=== PATIENT | male | born 1960 | race Caucasian/White ===

== ENCOUNTER 2021-11-26 11:35 | Emergency (ER) | payer OTHER, SELFPAY ==
--- NOTE | ~2021-11-26 | US_ITS ---
EXAMINATION: US VENOUS ULTRASOUND WITH DOPPLER LOWER EXTREMITY, LEFT CLINICAL INFORMATION: Pain, swelling. Evaluate for DVT. Patient reports left leg edema. COMPARISON: None TECHNIQUE: Ultrasound of the deep veins is performed from the hip to the calf with compression sonography and color and pulse Doppler assessment. Spectral analysis with color-flow imaging is performed. FINDINGS: There is normal venous compression and respiratory variation and augmented flow. The visualized common femoral vein, superficial femoral vein, profunda femoral vein, popliteal vein, and the trifurcation region shows no evidence of deep venous thrombosis. There is a 3.6 x 2.5 x 4.5 cm fluid collection in the left popliteal fossa likely representing a Baird's cyst. If the patient's symptoms persist, follow-up ultrasound in 5 to 7 days might be of value to exclude proximal propagation from a nonvisualized calf vein. US/US venous duplex LE IMPRESSION: No DVT demonstrated in the left lower extremity. Probable Baird's cyst.
[2021-11-26 13:04] VITALS: BP 178/97; PULSE 98; RESP 18; TEMP 36.8; O2SAT 98; BMI 29.7
--- NOTE | 2021-11-26 17:12 | ED_ITS ---
HPI - Extremity Injury (Lower) General Chief Complaint: Extremity Injury, Lower Stated Complaint: ?DVT Left Leg Time Seen by Provider: 11/26/21 16:33 Source: patient Mode of arrival: ambulatory Limitations: no limitations History of Present Illness HPI Narrative: 61-year-old male who presents emergency department for evaluation of pain in his left upper thigh and left leg. He states that the pain came on gradually approximately 4-5 days prior. He points to his left outer thigh and the back was thigh when asked to localize the pain. Describes it as a tightness which is constant and is 9/10 at its worst. The pain does radiate down his leg to his foot he states that his left foot is numb. He has not had any weakness in his leg, he denies loss of bowel or bladder control, he denies back pain. He states that he has been well and has not had fever, chills, chest pain, shortness of breath, cough. He denies drug use. The patient states that he was seen at the urgent care clinic at [facility] and started on prednisone 50 mg once a day for 3 days. He states that got this prescription on 11/24/2021 and this medicine has not helped his pain therefore came to emergency department for evaluation. The patient has not had any recent surgeries and has not gone on any long trips. Related Data Previous Rx's Medication Instructions Recorded cyclobenzaprine 10 mg tablet 10 mg PO TID PRN #15 tab 11/26/21 morphine 15 mg immediate release 15 mg PO Q4-6H PRN #10 tab 11/26/21 tablet prednisone 20 mg tablet 60 mg PO DAILY 7 Days #21 tab 11/26/21 Allergies Allergy/AdvReac Type Severity Reaction Status Date / Time No Known Allergies Allergy Verified 11/26/21 17:15 Review of Systems Review of Systems: Yes all other systems are reviewed and are negative [facility] Past Medical History [facility] Narrative: Past medical history: Hypertension, hyperlipidemia. Past surgical history: Left knee meniscal tear repair. Social history: He denies tobacco use. He states that he drinks 12 beers per week. He denies drug use. Medical History (Updated 11/26/21 @ 17:15 by Tavon Richard MD) Hypertension Torn meniscus Social History Social History Advance Directives: No Advance Directives Information Provided: No Physical Exam Vital Signs: Vital Signs: Last Vital Signs Temp 98.2 F 11/26/21 13:04 Pulse 98 11/26/21 13:04 Resp 18 11/26/21 13:04 BP 178/97 H 11/26/21 13:04 Pulse Ox 98 11/26/21 13:04 BMI result Body Mass Index 29.7 Const: General: cooperative and no acute distress Orientation/consciousness: oriented to person and oriented to place Limitations: no limitations HENMT: Head: Yes normal to inspection, Yes normocephalic and Yes atraumatic Ears: external ears normal General nose exam: Normal external nose present Face and sinus: Yes normal facial exam Mouth: Normal oral and palatal mucosa present Throat: Yes posterior oropharynx normal Eyes: General: appearance normal, both eyes and all related structures Pupils: Equal, round and reactive pupils present Neck: Neck: Yes normal visual inspection, Yes no lymphadenopathy, Yes trachea midline and Yes supple Chest: Chest palpation & inspection: normal inspection of the chest and normal palpation of entire chest wall Resp: Effort & Inspection: normal respiratory effort and able to speak in complete sentences Auscultation: clear to auscultation bilaterally Cardio: Rate: regular rate Rhythm: regular rhythm Heart sounds: S1 normal heart sound present, S2 normal heart sound present and no murmurs GI: Inspection: Yes normal to inspection Palpation (GI): Soft to palpation, nontender and no guarding Auscultation: normal bowel sounds : General: Yes no CVA tenderness Back/Spine/Pelvis: Back: no CVA tenderness Thoracic/Lumbar Spine: thoracic and lumbar spine normal to inspection, thoraco-lumbar ROM normal, No paraspinal muscle tenderness and No thoraco-lumbar spasm Skin: General skin exam: no rashes or lesions noted Neuro: General: oriented to person and oriented to place Cranial nerves: Yes CN's II-XII intact bilaterally and Yes Equal, round and reactive pupils present Cognition (Neuro): normal cognition Motor exam (neuro): 5/5 motor strength present throughout Extrem: Other: The patient's thighs and calves appear to be symmetric, there is no erythema or increased warmth noted over the skin of his lower extremities, the patient does have tenderness with palpation of his left posterior thigh muscles as well as along the left lateral thigh muscles, he has negative straight leg raises bilaterally, he has normal light touch bilaterally symmetric and normal strength which is bilaterally symmetric. Psych: Appearance: grossly normal Speech and movement: Normal speech and movement present Affect: normal affect Attitude: cooperative Thought process: Normal thought process present Thought content: Normal thought content present Course Course Course Narrative: 61-year-old male who presents emergency department for evaluation of 5 days of left posterior and lateral thigh pain which radiates down his leg to his foot, he describes numbness of his left foot, he denies back pain or recent injury to his back. He has not been ill in any way prior to the onset of this pain. The patient's physical examination revealed a normal skin exam of his lower extremities with no erythema or increased warmth, the patient does have tenderness palpation of his posterior and lateral left thigh with negative straight leg raises. The patient had a Doppler ultrasound of his left lower extremity which was negative. At this time, I do not have a clear etiology for his pain but I think that he has either sciatica or a disc which may with nerve inflammation/impingement. I do not think that he has an infectious process given his exam and his presentation. Patient will be treated with prednisone 60 mg once a day for 7 days, Tylenol and cyclobenzaprine. For pain not relieved with thes medications he was prescribed morphine 15 mg every 4-6 hours as needed for pain. He was given printed and verbal instructions advised to follow-up with his PCP in 2 days or return if his symptoms are worse. Discharge Plan Discharge Clinical Impression: Sciatica Patient Disposition: Home, Self-Care Instructions: Sciatica (ED) Additional Instructions: You had a Doppler ultrasound of your left lower extremity which was normal, there was no evidence for a blood clot in your leg at this time. Your examination did not reveal any significant findings to explain your pain. Since the pain radiates down your leg to your foot, I suspect that you have sciatica or a disc in your back which may be pinching a nerve. I am going to treat you with a longer course of anti-inflammatory steroids. Take prednisone 20 mg pills, 3 pills once a day for 1 week. While you are taking prednisone do not take any [id number]-[id number]-trzhsdy anti-inflammatory medications such as ibuprofen, Motrin, naproxen, Aleve, Advil. For pain and spasm take Flexeril (cyclobenzaprine) 10 mg, 1 pill 3 times a day as needed. This medication will make therefore do not work or drive while taking this medication. Also take Tylenol (acetaminophen) 500 mg pills, 2 pills every 6 hours as needed for pain. For pain not relieved by ibuprofen or Tylenol take morphine 15 mg pills, 1 pill every 4 hours as needed for pain. Do not drive or work while taking this medication since they can cause sleepiness. Morphine is a narcotic medication that can be addicting. If you are concerned about addiction you can ask the pharmacist for less pills or do not get this prescription filled. Follow-up with your doctor in 2 days. Please return to the emergency department if your symptoms get worse or if you develop any symptoms that are concerning to you. Do not drink alcohol when taking the above medications. Prescriptions: New cyclobenzaprine 10 mg tablet 10 mg PO TID PRN (Reason: pain, muscle spasm) Qty: 15 RF: 0 prednisone 20 mg tablet 60 mg PO DAILY 7 Days Qty: 21 RF: 0 morphine 15 mg tablet 15 mg PO Q4-6H PRN (Reason: pain) Qty: 10 RF: 0
== END 2021-11-26 17:31 | disposition home or self-care (01) ==
LOC: HO.ED 17:21
PROVIDERS: Emergency Provider Emergency Medicine Emergency Medical Services; PCP Internal Medicine
DX: M54.30 Sciatica, unspecified side (principal); M79.605 Pain in left leg; I10 Essential (primary) hypertension
CPT/HCPCS: 93971; 99283; 99284

== ENCOUNTER → 2021-12-23 08:04 | Outpatient (BNVA) | payer OTHER, SELFPAY | PROVIDERS: PCP Internal Medicine; Visit Provider Internal Medicine ==

== ENCOUNTER 2022-01-08 12:54 | Outpatient (RCR) | payer OTHER, SELFPAY ==
--- NOTE | 2022-01-09 14:56 | MHC.PT.EP ---
[facility] [place] Office [place] Office [place] Office [address] [phone] F: [phone] F: [phone] F: [phone] F: [phone] Physical Therapy Plan of Care Date of Evaluation: Date of Surgery: n/a. Diagnosis: Lumbago Assessment: Patient is a 61 year old R handed male who presents with s/s consistent with pain lumbago. 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 Patient past medical history includes L meniscus injury. Current impairments include pain, sensation, flexibility, posture, ROM, strength, activity tolerance and functional mobility. Functional limitations include decreased ability to perform transfers, ambulation, stairs, squatting, lifting and carrying. Patient is motivated with good rehab potential. Skilled PT will address impairments and functional limitations in order to achieve goals. Before starting formal PT, I will refer him to pursue a specialist regarding dermatomal/sensory changes consistent with S1 nerve compression. Frequency and Duration: The patient will be seen 2x/week for 5 weeks - currently referred to PCP to seek Neuro/Spine consult Short Term Goals: I with HEP - 2 weeks Jail Goals: Reduce/centralize all lumbar originated s/s - 4 weeks Restore PLOF - 4 weeks Oswestry 16% or better - 5 weeks Treatment Plan: Modalities to reduce pain, spasms and effusion. Manual therapy to restore motion and function. Therapeutic exercise to improve strength and flexibility. Neuromuscular re-education for posture and balance. Therapeutic activities to return to functional activities of daily living. Electronically signed by: Karthikeyan Ogden, PT Please sign and return to therapist. Thank you for your referral.
--- NOTE | 2022-08-21 08:45 | MHC.PT.DC ---
[facility] [place] Office [place] Office [place] Office [address] [phone] F: [phone] F: [phone] F: [phone] F: [phone] Physical Therapy Discharge Report Diagnosis: Lumbago Date of Surgery: n/a. Date of Evaluation: 01/08/22 Date of Discharge: 02/03/22 Treatments to Date: 1 Cancellations to Date: No Shows to Date: Discharge Status: Patient Elected to Stop Discharge Summary: Pt did not return after evaluation. Patient is a 61 year old R handed male who presents with s/s consistent with pain lumbago. 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 Patient past medical history includes L meniscus injury. Current impairments include pain, sensation, flexibility, posture, ROM, strength, activity tolerance and functional mobility. Functional limitations include decreased ability to perform transfers, ambulation, stairs, squatting, lifting and carrying. Patient is motivated with good rehab potential. Skilled PT will address impairments and functional limitations in order to achieve goals. Electronically signed by: Karthikeyan Ogden, PT Please sign and return to therapist. Thank you for your referral.
== END 2022-08-21 08:45 | disposition home or self-care (01) ==
LOC: HO.PTCHIC 12:54
PROVIDERS: PCP Internal Medicine; Visit Provider Internal Medicine
DX: M54.42 Lumbago with sciatica, left side (principal)
CPT/HCPCS: 97161

== ENCOUNTER 2022-09-29 15:57 | Emergency (ER) | payer OTHER, SELFPAY ==
[2022-09-29 16:45] VITALS: BP 136/84; PULSE 91; RESP 16; TEMP 36.8; O2SAT 97; BMI 28.6
--- NOTE | 2022-09-29 16:52 | ED.GENADULT ---
HPI - General Adult General Chief complaint: General Medical Stated complaint: possible cellulitis in arm Time Seen by Provider: 09/29/22 16:51 Source: patient Mode of arrival: ambulatory Limitations: no limitations History of Present Illness HPI narrative: Patient is a 62 year old assigned male at with a history of HTN and HLD presenting to the emergency department today with a cat scratch to his right arm. Patient states that 2 days ago he was scratched by his cat and today he noticed that the area was somewhat swollen and red. Patient states that he is up to date on tetanus. Patient denies any dizziness, lightheadedness, abdominal pain, nausea, vomiting, fever, chills, blurry vision, double vision, loss of vision, chest pain, difficulty breathing, shortness of breath, back pain, night sweats, pain with urination, increased urinary frequency, increased urinary urgency, blood in his urine or stool, syncope or a near syncopal episode, recent trauma or falls, bowel incontinence, bladder incontinence, bowel retention, bladder retention, or any other complaints at this time. Location: right and upper extremity Radiation: non-radiation Severity: mild Severity scale (1-10): 3 Quality: dull Relieving factors: none Exacerbating factors: none Associated symptoms: denies other symptoms Treatments prior to arrival: none Related Data Home Medications Medication Instructions Recorded Confirmed amlodipine 5 mg tablet 5 mg PO DAILY 12/23/21 12/23/21 atorvastatin 40 mg tablet 40 mg PO BEDTIME 12/23/21 12/23/21 ezetimibe 10 mg tablet 10 mg PO DAILY 12/23/21 12/23/21 hydrochlorothiazide 25 mg tablet 25 mg PO DAILY 12/23/21 12/23/21 Previous Rx's Medication Instructions Recorded cyclobenzaprine 10 mg tablet 10 mg PO TID PRN pain, muscle 11/26/21 spasm #15 tabs amoxicillin 875 mg-potassium 1 tab PO BID 10 days #20 tabs 09/29/22 clavulanate 125 mg tablet Allergies Allergy/AdvReac Type Severity Reaction Status Date / Time No Known Allergies Allergy Verified 09/29/22 16:44 Review of Systems Constitutional: Constitutional: Reports no additional constitutional complaints, Denies chills, Denies fever(s) and Denies night sweats Eyes: Eyes: Reports no additional eye complaints, Denies blurry vision, Denies change in vision, Denies diplopia, Denies eye discharge, Denies loss of vision and Denies eye pain ENT: Denies dizziness Cardiovascular: Cardiovascular: Reports no additional cardiovascular complaints, Denies chest pain, Denies lightheadedness, Denies Loss of Consciousness and Denies dyspnea Respiratory: Respiratory: Reports no additional respiratory complaints and Denies dyspnea Gastrointestinal: Gastrointestinal: Reports no additional gastrointestinal complaints, Denies abdominal pain, Denies melena, Denies hematochezia, Denies change in bowel habits and Denies change in stool character Genitourinary: Genitourinary: Reports no additional male genitourinary complaints, Denies hematuria, Denies oliguria, Denies difficulty urinating, Denies dysuria, Denies urinary frequency, Denies urinary hesitancy, Denies urinary incontinence and Denies urinary urgency Musculoskeletal: Musculoskeletal: Reports no additional musculoskeletal complaints, Denies numbness and Denies tingling Integumentary/Breasts: Comments: right wrist redness and swelling Neurologic: Denies dizziness, Denies loss of vision, Denies numbness and Denies tingling Psychiatric: Psychiatric: Reports no additional psychiatric complaints Endocrine: Endocrine: Reports no additional endocrine complaints Hematologic/Lymphatic: Hematologic/Lymphatic: Reports no additional hematologic/lymphatic complaints Allergic/Immunologic: Allergic/Immunologic: Reports no additional allergic/immunologic complaints PMFSH Past Medical History Attestation statement: The following information was validated with the patient. Source: old records reviewed Medical History Abnormal brain MRI Asymptomatic hyperuricemia Elevated PSA History of colon polyps Hyperlipidemia Hypertension Left facial numbness Left-sided low back pain with sciatica Obese Torn meniscus Surgical History Hx of colonoscopy Social History Social History Patient Tobacco Use Status: Former Tobacco user Cigarette Packs Per Day: 1 Years Smoked: 18 Advance Directives: No Advance Directives Information Provided: No Physical Exam ED Vital Signs: Vital Signs - 24 hr 09/29/22 16:45 Temperature 98.2 F Pulse Rate 91 Respiratory Rate 16 Blood Pressure 136/84 Pulse Oximetry 97 Oxygen Delivery Method Room Air BMI result Body Mass Index 28.6 Const General: cooperative, no acute distress, alert and awake Nutritional Appearance: well nourished Orientation/consciousness: patient oriented x3 Limitations: no limitations HENMT Head: Yes normal to inspection and Yes atraumatic Ears: hearing grossly normal bilaterally and external ears normal General nose exam: Normal external nose present, no nasal discharge noted and no epistaxis Face and sinus: Yes normal facial exam, No abrasion and No laceration Mouth: Normal oral and palatal mucosa present, no drooling and no muffled voice Eyes General: appearance normal, both eyes and all related structures Periorbital: periorbital findings normal Eyelids: Yes eyelids normal Conjunctivae: conjunctivae normal Pupils: Equal, round and reactive pupils present EOM: EOMs intact bilaterally Neck Neck: Yes normal visual inspection, Yes full ROM and Yes no lymphadenopathy Chest Chest palpation & inspection: normal inspection of the chest Resp Effort & Inspection: normal respiratory effort and able to speak in complete sentences Auscultation: clear to auscultation bilaterally Cardio Rate: regular rate Rhythm: regular rhythm GI Inspection: Yes normal to inspection Skin Other: mild erythema and mild swelling to the right forearm Neuro General: patient oriented x3 and moves all extremities Cranial nerves: Yes Equal, round and reactive pupils present Cognition (Neuro): normal cognition Motor exam (neuro): 5/5 motor strength present throughout Sensory Exam: Normal double simultaneous stimulation for sensation Coordination: [id number] test normal Extrem General: Yes normal to inspection, Yes full ROM and Yes capillary refill normal Psych Appearance: grossly normal Mental Status: mental status grossly normal Affect: normal affect Attitude: cooperative Thought process: Normal thought process present Thought content: Normal thought content present Insight: Good insight present (Psych) Medical Decision Making [facility] Narrative Medical decision making narrative: Patient is a 62 year old assigned male at with a history of HTN and HLD presenting to the emergency department today with right wrist pain. Patient's physical exam showed mild erythema and swelling to the right volar wrist. Patient's current clinical presentation is most consistent with cellulitis. I explained my physical exam findings to the patient. I answered all questions asked by the patient. I stressed the importance of the patient taking his medication as prescribed. I stressed the importance of the patient following up with his primary care provider. I stressed the importance of the patient returning to the emergency department immediately if his symptoms were to worsen or if he were to develop any dizziness, shortness of breath, difficulty breathing, chest pain, blurry vision, loss of vision, nausea, vomiting, abdominal pain, fever, chills, back pain, or any other complaints. Patient verbalized agreement and understanding with this treatment plan and discharge. Medical Records Medical records reviewed: Yes I reviewed the patient's medical records. Discharge Plan Discharge Clinical Impression: Cellulitis Patient Disposition: Home, Self-Care Instructions: Cellulitis (ED) Additional Instructions: Follow up with your primary care provider. Return to the emergency department immediately if your symptoms worsen or if you develop any dizziness, shortness of breath, difficulty breathing, chest pain, blurry vision, loss of vision, nausea, vomiting, abdominal pain, fever, chills, back pain, or any other complaints. Prescriptions: New amoxicillin-pot clavulanate 875-125 mg tablet 1 tab PO BID 10 Days Qty: 20 0RF No Action cyclobenzaprine 10 mg tablet 10 mg PO TID PRN (Reason: pain, muscle spasm) Qty: 15 0RF amlodipine 5 mg tablet 5 mg PO DAILY atorvastatin 40 mg tablet 40 mg PO BEDTIME hydrochlorothiazide 25 mg tablet 25 mg PO DAILY ezetimibe 10 mg tablet 10 mg PO DAILY Referrals: Ernesto Vasquez III, MD [Primary Care Provider] - Interventions: ED Discharge Assessment Last Done: 09/29/22 16:56 Discharge Date/Time: 09/29/22 17:17 Print Language: Macedonian
== END 2022-09-29 17:17 | disposition home or self-care (01) ==
LOC: HO.ED 17:08
PROVIDERS: Emergency Provider Student in an Organized Health Care Education/Training Program; PCP Internal Medicine
DX: L03.113 Cellulitis of right upper limb (principal); Z79.899 Other long term (current) drug therapy
CPT/HCPCS: 99282; 99283

== ENCOUNTER 2022-10-01 11:42 | Emergency (ER) | payer OTHER, SELFPAY ==
[2022-10-01 12:24] VITALS: BP 133/103; PULSE 86; RESP 18; TEMP 36.9; O2SAT 99; BMI 29.0
--- NOTE | 2022-10-01 13:19 | ED_ITS ---
HPI - Extremity Problem General Chief complaint: Extremity Problem Stated complaint: cellulitis on R hand Time Seen by Provider: 10/01/22 12:52 Source: patient Mode of arrival: ambulatory Limitations: no limitations History of Present Illness HPI Narrative: 62-year-old male with history of hypertension and hyperlipidemia presents with right hand redness, swelling and pain. Patient is right-hand dominant. He bel ieves that he may had a small cat scratch or bite on his right hand. He was seen here on September 29. He was diagnosed with cellulitis and started on Augmentin. He has taken 4 doses of the Augmentin. He is here because he is worried there is increasing redness, swelling to the right hand. No fevers, chills, vomiting. Overall is feeling okay. Patient does report history of cellulitis in the past that did not improve with Augmentin and did require Bactrim. Related Data Home Medications Medication Instructions Recorded Confirmed amlodipine 5 mg tablet 5 mg PO DAILY 12/23/21 12/23/21 atorvastatin 40 mg tablet 40 mg PO BEDTIME 12/23/21 12/23/21 ezetimibe 10 mg tablet 10 mg PO DAILY 12/23/21 12/23/21 hydrochlorothiazide 25 mg tablet 25 mg PO DAILY 12/23/21 12/23/21 Previous Rx's Medication Instructions Recorded cyclobenzaprine 10 mg tablet 10 mg PO TID PRN pain, muscle 11/26/21 spasm #15 tabs amoxicillin 875 mg-potassium 1 tab PO BID 10 days #20 tabs 09/29/22 clavulanate 125 mg tablet cephalexin 500 mg capsule 500 mg PO BID #14 caps 10/01/22 doxycycline monohydrate 100 mg 100 mg PO BID #14 caps 10/01/22 capsule Allergies Allergy/AdvReac Type Severity Reaction Status Date / Time No Known Allergies Allergy Verified 09/29/22 16:44 Review of Systems Review of Systems: Yes all other systems are reviewed and are negative Constitutional: Constitutional: Reports no additional constitutional co mplaints, Denies body ache(s), Denies chills, Denies fever(s), Denies headache(s) and Denies weakness Eyes: Eyes: Reports no additional eye complaints and Denies change in vision ENT: Reports system reviewed and no additional complaints, except as documented, Denies dizziness, Denies headache(s), Denies nasal congestion, Denies nasal discharge and Denies neck pain Cardiovascular: Cardiovascular: Reports no additional cardiovascular complaints, Denies chest pain, Denies leg edema and Denies dyspnea Respiratory: Respiratory: Reports no additional respiratory complaints, Denies cough and Denies dyspnea Gastrointestinal: Gastrointestinal: Reports no additional gastrointestinal complaints, Denies abdominal pain, Denies diarrhea, Denies nausea and Denies vomiting Genitourinary: Genitourinary: Denies urinary incontinence Musculoskeletal: Musculoskeletal: Reports no additional musculoskeletal complaints, Denies back pain, Denies arthralgias, Denies joint swelling, Denies neck pain, Denies numbness and Denies tingling Integumentary/Breasts: Skin/Breast: Reports system reviewed and no additional complaints, except as docu, Reports swelling, Reports erythema and Denies rash Neurologic: Reports system reviewed and no additional complaints, except as documented, Denies Abnormal speech present, Denies dizziness, Denies headache(s), Denies numbness, Denies tingling and Denies weakness PMFSH Past Medical History Attestation statement: The following information was validated with the patient. Source: old records reviewed and nursing notes reviewed Medical History Abnormal brain MRI Asymptomatic hyperuricemia Elevated PSA History of colon polyps Hyperlipidemia Hypertension Left facial numbness Left-sided low back pain with sciatica Obese Torn meniscus Surgical History Hx of colonoscopy Social History Social History Patient Tobacco Use Status: Former Tobacco user Cigarette Packs Per Day: 1 Years Smoked: 18 Advance Directives: No Physical Exam Vital Signs: Vital Signs: Last Vital Signs Temp 98.4 F 10/01/22 12:24 Pulse 86 10/01/22 12:24 Resp 18 10/01/22 12:24 BP 133/103 H 10/01/22 12:24 Pulse Ox 99 10/01/22 12:24 O2 Del Method 10/01/22 12:24 BMI result Body Mass Index 29.0 Const: General: cooperative, healthy appearing, comfortable and no acute distress Orientation/consciousness: patient oriented x3 Limitations: no limitations HEENT: Head: Yes normal to inspection Ears: hearing grossly normal bilaterally General nose exam: Normal external nose present Face and sinus: Yes normal facial exam Mouth: Normal oral and palatal mucosa present Throat: Yes posterior oropharynx normal Eyes: General: appearance normal, both eyes and all related structures Pupils: Equal, round and reactive pupils present Neck: Neck: Yes normal visual inspection Chest: Chest palpation & inspection: normal inspection of the chest Resp: Effort & Inspection: normal respiratory effort Auscultation: clear to auscultation bilaterally Cardio: Rate: regular rate Rhythm: regular rhythm Peripheral pulses: Peripheral pulses 2+ throughout GI: Inspection: Yes normal to inspection Palpation (GI): Soft to palpation and nontender Auscultation: normal bowel sounds Back/Spine/Pelvis: Thoracic/Lumbar Spine: thoracic and lumbar spine normal to inspection Skin: General skin exam: no rashes or lesions noted Neuro: General: patient oriented x3, no focal motor deficits and normal sensation to monofilament Cranial nerves: Yes Equal, round and reactive pupils present Cognition (Neuro): normal cognition Speech: No Abnormal speech present Gait exam (Neuro): Normal gait present Motor exam (neuro): 5/5 motor strength present throughout Extrem: Other: There is some mild tenderness over the right dorsal medial wrist but there is full range of motion of the wrist and hand with no difficulty. There is some mild discomfort with flexion and extension of the wrist the patient is able. No pain with passive range of motion. Neurovascularly intact distally. General: Yes normal to inspection MDM - Extremity (Nontraumatic) MDM Narrative Medical decision making narrative: 62-year-old male with history of hypertension, hyperlipidemia, [id number] here with increasing redness and swelling to the right hand despite taking 4 doses of Augmentin. Of note in the past and patient has had cellulitis he has not improved with Augmentin has required Bactrim On exam there is no evidence of tenosynovitis or septic joint. Patient is afebrile and overall nontoxic appearing. Patient was seen in conjunction with Dr. Suh. Likely patient will require additional coverage and so we will change his antibiotics to doxycycline and cephalexin. Pictures were placed in the chart and patient also was recommended to take pictures of his hand to monitor the site and return for any worrisome signs or symptoms. Comfortable plan for discharge home. Medical Records Attestation: I reviewed the patient's medical records. Lab Data Attestation: I reviewed the patient's lab results. Discharge Plan Discharge Clinical Impression: Cellulitis Patient Disposition: Home, Self-Care Instructions: Cellulitis (ED) Additional Instructions: Stop taking the Augmentin Start taking the new antibiotic Make sure your elevating your hand as much as possible Return for fever or worsening symptoms Prescriptions: New doxycycline monohydrate 100 mg capsule 100 mg PO BID Qty: 14 0RF cephalexin 500 mg capsule 500 mg PO BID Qty: 14 0RF No Action cyclobenzaprine 10 mg tablet 10 mg PO TID PRN (Reason: pain, muscle spasm) Qty: 15 0RF amoxicillin-pot clavulanate 875-125 mg tablet 1 tab PO BID 10 Days Qty: 20 0RF amlodipine 5 mg tablet 5 mg PO DAILY atorvastatin 40 mg tablet 40 mg PO BEDTIME hydrochlorothiazide 25 mg tablet 25 mg PO DAILY ezetimibe 10 mg tablet 10 mg PO DAILY Referrals: Ernesto Vasquez III, MD [Primary Care Provider] - 5 days (as needed)
== END 2022-10-01 13:25 | disposition home or self-care (01) ==
PROVIDERS: Emergency Provider Student in an Organized Health Care Education/Training Program; PCP Internal Medicine
DX: L03.113 Cellulitis of right upper limb (principal); Z79.899 Other long term (current) drug therapy; Z87.891 Personal history of nicotine dependence
CPT/HCPCS: 99283

== ENCOUNTER 2022-10-07 23:03 | Inpatient (IN) | payer OTHER, SELFPAY ==
--- NOTE | ~2022-10-07 | MR_ITS ---
EXAMINATION: MR HAND WITHOUT AND WITH CONTRAST, RIGHT CLINICAL INFORMATION: Fifth digit pain. Evaluate for osteomyelitis. COMPARISON: Right hand radiographs dated 10/08/2022. TECHNIQUE: Multisequence MR imaging of the right hand was obtained before and after the IV administration of 8.5 mL Gadavist contrast on a high-field strength scanner. FINDINGS: BONE: Subchondral cystic change with loss of articular cartilage and small marginal osteophytes at the 5th distal interphalangeal joint. Mild marrow edema with minimal postcontrast enhancement within the middle phalangeal head in the region of the prior radiograph findings. No acute fracture or dislocation. Mild, partially visualized edema/degenerative cystic change within the carpal bones. MUSCLES/TENDONS: Fluid within the 5th flexor digitorum tendon sheath with postcontrast enhancement, consistent with tenosynovitis. No transverse tendon tear or tendon retraction. The remaining flexor and extensor tendons are intact. The median nerve is unremarkable. LIGAMENTS: The collateral ligaments are grossly intact. SOFT TISSUES: Dorsal subcutaneous edema. No organized fluid collection/abscess formation. MR/MR hand RT wo/w con IMPRESSION: 1. Fifth distal interphalangeal joint erosion with mild marrow edema and postcontrast enhancement in the region of the prior radiograph findings. Findings may be degenerative or could indicate an infectious or inflammatory arthropathy in the appropriate clinical setting. No significant joint effusion to suggest septic arthritis. 2. Moderate 5th flexor digitorum tenosynovitis without a measurable tendon tear or tendon retraction. 3. Dorsal subcutaneous edema without organized fluid collection/abscess formation.
--- NOTE | ~2022-10-07 | XR_ITS ---
EXAMINATION: XR HAND, RIGHT CLINICAL INFORMATION: Rule out osteomyelitis of the fifth digit, pain. COMPARISON: None TECHNIQUE: PA, lateral, and oblique views of the right hand. FINDINGS: There is diffuse soft tissue swelling, more noticeable along the fifth digit and wrist. There are erosions and cortical disruption along the ulnar aspect of the distal fifth middle phalanx, concerning for osteomyelitis. No displaced fractures. No subluxation. Decreased bone mineralization with mild to moderate multifocal osteoarthritis more noticeable in the first carpometacarpal joint and triscaphe space. XR/XR hand RT min 3V IMPRESSION: 1. Erosions and cortical disruption along the ulnar aspect of the distal fifth middle phalanx, concerning for osteomyelitis. 2. Diffuse soft tissue swelling.
[2022-10-07 23:15] VITALS: BP 125/85; PULSE 103; RESP 18; TEMP 36.7; O2SAT 99; BMI 29.0
[2022-10-07 23:33] LABS: MANUAL DIFF FLAG NO
[2022-10-07 23:34] LABS: Basophils Absolute Auto 0.1 X10*3/uL (0.0-0.2); Basophils Percent Auto 0.5 % (0-2); Eosinophils Absolute Auto 0.2 X10*3/uL (0.0-0.4); Hematocrit 39.5 % (42.0-52.0); Hemoglobin 13.8 g/dl (14.0-18.0); Imm Gran Abs Auto 0.08 X10*3/uL (0.00-0.03); Imm Gran Pct Auto 0.7 % (0.0-0.4); Lymphocytes Absolute Auto 2.3 X10*3/uL (1.2-4.9); Lymphocytes Percent Auto 20.1 % (20-40); Mean Corpuscular HGB Conc 34.9 g/dl (31.0-36.0); Mean Corpuscular Hemoglobin 30.5 pg (27.0-33.0); Mean Corpuscular Volume 87.4 fL (80.0-98.0); Mean Platelet Volume 8.3 fL (9.4-12.4); Monocytes Absolute Auto 1.1 X10*3/uL (0.1-1.2); Monocytes Percent Auto 9.8 % (2-11); Neutrophils Absolute Auto 7.8 x10*3/uL (2.0-8.3); Neutrophils Percent Auto 66.9 % (45-73); Platelet Count 484 X10*3/uL (160-400); Red Blood Count 4.52 X10*6/uL (4.60-5.80); Red Cell Distribution Width 12.7 % (11.0-16.0); White Blood Count 11.6 X10*3/uL (4.8-10.8)
[2022-10-08] LABS: Alanine Aminotransferase 13 U/L (0-40); Albumin Level 4.1 g/dL (3.5-5.0); Alkaline Phosphatase 103 U/L (39-117); Anion Gap 20 (12-20); Aspartate Amino Transferase 15 U/L (5-37); Bilirubin Total 0.4 mg/dL (0.0-1.0); Blood Urea Nitrogen 15 mg/dL (9-16); Calcium 9.5 mg/dL (8.4-10.2); Carbon Dioxide 24 mmol/L (22-29); Chloride 101 mmol/L (96-108); Creatinine Clr Calc Pharmacy 79.5; Estimated Glomerular Filt Rate > 60; Glucose Random 120 mg/dL (60-115); Potassium 3.1 mmol/L (3.3-5.1); Sodium 142 mmol/L (135-145); Total Protein 6.7 g/dL (6.5-8.0)
[2022-10-08 03:41] LABS: Lactic Acid 1.8 mmol/L (0.5-2.0)
[2022-10-08] MEDS: Piperacillin Sodium/Tazobactam 3.375 GM in 0.9 % Sodium Chloride 50 ML IV (04:03)
--- NOTE | 2022-10-08 04:05 | PC.NURSE ---
pt a&o, no sob or chest pain. Brandt right hand to monitor increase redness. pt able to move for digits okay, pinky finger is limited to swelling. Medicated per mar
[2022-10-08 04:10] VITALS: BP 114/80; PULSE 87; RESP 17; TEMP 36.9; O2SAT 98
[2022-10-08] MEDS: vancomycin HCL 1,000 MG in 0.9 % Sodium Chloride 250 ML 270 MG IV (04:54)
[2022-10-08 04:56] VITALS: BP 117/81; PULSE 79; RESP 12; TEMP 36.9; O2SAT 94
--- NOTE | 2022-10-08 04:58 | PC.NURSE ---
Second antibiptoc hung after first antibiotic completed. pt has one line. Will continue to monitor.
--- NOTE | 2022-10-08 05:05 | PM.IMHP ---
History of Present Illness Date of Service: 10/08/22 Chief Complaint: Right fifth finger swelling This is a 62-year-old male with pertinent history of essential hypertension, mixed hyperlipidemia presents to the emergency department after abnormal hand x-ray. Patient was seen in the ER twice previously for right hand cellulitis due to cat bite. Patient was given 2 separate p.o. antibiotic course and has tried Augmentin, doxycycline and cephalexin as an outpatient. He states he noticed improvement in right hand swelling, redness but it never resolved. Patient had worsening right 5th finger swelling, redness and pain. Pain is constant, nonradiating and worse with any movement. Patient got an x-ray as an outpatient and was asked to come to the ER for concerns of osteomyelitis. Patient denies fever, chills, nausea, vomiting, chest discomfort, palpitations, shortness of breath, abdominal pain, changes in urinary or bowel habits In the emergency department, hand x-ray concerning for osteomyelitis Review of Systems Constitutional: Constitutional: Reports no additional constitutional complaints Cardiovascular: Cardiovascular: Reports no additional cardiovascular complaints Respiratory: Respiratory: Reports no additional respiratory complaints Gastrointestinal: Gastrointestinal: Reports no additional gastrointestinal complaints Musculoskeletal: Musculoskeletal: Reports arthralgias and Reports joint swelling Neurologic: Reports system reviewed and no additional complaints, except as documented [facility] Medical History Abnormal brain MRI Asymptomatic hyperuricemia Elevated PSA History of colon polyps Hyperlipidemia Hypertension Left facial numbness Left-sided low back pain with sciatica Obese Torn meniscus Surgical History Hx of colonoscopy Social History Patient Tobacco Use Status: Former Tobacco user Cigarette Packs Per Day: 1 Years Smoked: 18 Advance Directives: No Advance Directives Information Provided: No Meds Allergies Allergy/AdvReac Type Severity Reaction Status Date / Time No Known Allergies Allergy Verified 10/07/22 23:20 Active Medications: Current Medications Acetaminophen (Acetaminophen 325 Mg Tablet) 650 mg PO Q6H PRN PRN Reason: Pain, Mild (Pain Scale 1-3) Melatonin (Melatonin 3 Mg Tablet) 6 mg PO BEDTIME PRN PRN Reason: Insomnia Ondansetron HCl (Ondansetron Hcl 4 Mg/2 Ml Vial) 4 mg IVPUSH Q8H PRN PRN Reason: Nausea and Vomiting Pharmacy Consult (Consult Rx Vancomycin Dosing) 1 each MISCELLANE DAILY PRN PRN Reason: Consult order Potassium Chloride (Potassium Chloride Packet 20 Meq Packet) 40 meq PO ONCE ONE Stop: 10/08/22 05:02 Sodium Chloride (0.9 % Sodium Chloride Flush 3 Ml Syringe) 3 ml IVFLUSH QSHIST. [facility] Home Medications Medication Instructions Recorded Confirmed Last Taken Type amlodipine 5 mg tablet 5 mg PO DAILY 12/23/21 12/23/21 Unknown History atorvastatin 40 mg tablet 40 mg PO BEDTIME 12/23/21 12/23/21 Unknown History ezetimibe 10 mg tablet 10 mg PO DAILY 12/23/21 12/23/21 Unknown History hydrochlorothiazide 25 mg tablet 25 mg PO DAILY 12/23/21 12/23/21 Unknown History Physical Exam Vital Signs and Narrative: Vital Signs: Last Vital Signs Temp 98.4 F 10/08/22 04:56 Pulse 79 10/08/22 04:56 Resp 12 10/08/22 04:56 BP 117/81 10/08/22 04:56 Pulse Ox 94 10/08/22 04:56 O2 Del Method 10/08/22 04:56 BMI result Body Mass Index 29.0 Middle-aged male lying in bed in no distress Neck supple, no JVD Regular rate and rhythm, S1-S2 heard Regular breath sounds bilaterally, no wheezing or crackles appreciated Abdomen soft nontender, no guarding, no rigidity Patient is awake, alert and oriented to self, place, time and person ; no focal motor deficit Msk: right hand with redness, right fifth finger with swelling and tenderness Psych: Normal mood No pedal edema Results Labs CBC and Chem 7: 10/07/22 23:28 10/07/22 23:28 Labs: Laboratory Results - last 24 hr 10/07/22 10/07/22 10/08/22 23:28 23:28 03:23 MCV 87.4 MCH 30.5 MCHC 34.9 RDW 12.7 Plt Count 484 H MPV 8.3 L Immature Gran % (Auto) 0.7 H Neut % (Auto) 66.9 Lymph % (Auto) 20.1 [place] % (Auto) 9.8 Eos % (Auto) 2.0 Baso % (Auto) 0.5 Lymph # (Auto) 2.3 [place] # (Auto) 1.1 Eos # (Auto) 0.2 Baso # (Auto) 0.1 Abs Immat Gran (auto) 0.08 H Absolute Neuts (auto) 7.8 Absolute Nucleated RBC 0.000 Nucleated RBC % (auto) 0.0 Anion Gap 20 Estim Creat Clear Calc 79.5 Estimated GFR > 60 Random Glucose 120 H Lactic Acid 1.8 Calcium 9.5 Total Bilirubin 0.4 AST 15 ALT 13 Alkaline Phosphatase 103 Total Protein 6.7 Albumin 4.1 Imaging Radiologist's Impressions: Impressions Hand X-Ray 10/08/22 03:36 IMPRESSION: 1. Erosions and cortical disruption along the ulnar aspect of the distal fifth middle phalanx, concerning for osteomyelitis. 2. Diffuse soft tissue swelling. Assessment and Plan (1) Hyperlipidemia: Status: Acute (2) Hypertension: Status: Acute (3) Osteomyelitis: Status: Acute (4) Cellulitis: Status: Acute Plan This is a 62-year-old male with pertinent history of essential hypertension, mixed hyperlipidemia presents to the emergency department after abnormal hand x-ray. #. Acute right fifth phalanx osteomyelitis - patient received broad-spectrum IV antibiotics in the ER. Currently not septic, will hold antibiotics for higher yield bone culture. Consulting orthopedics and Infectious Disease. #. Right hand cellulitits -improving but hasnt resolved. Abx defer until bone culture as above. #. HTN - continue home p.o. medications. #. HLD -on statin and zetia #. Hypokalemia -repleted Med rec pending DVT prophylaxis: Hold anticoagulation until orthopedic surgery evaluation Full code NPO until orthopedic surgery evaluation Admit as inpatient and will require two night minimum hospital stay for IV antibiotics. Orthopedic surgery and infectious disease eval pending Quality Stroke Does the patient have a stroke diagnosis?: No VTE Prior VTE?: No VTE Risk Level:: Medical - low VTE Device Contraindication: Treatment Not Indicated VTE Drug Contraindication: Treatment Not Indicated
[2022-10-08] MEDS: Potassium Chloride Packet 20 MEQ PACKET 40 MEQ PO ×2 (05:27→06:10)
--- NOTE | 2022-10-08 05:47 | ED.GENADULT ---
HPI - General Adult General Chief complaint: Extremity Problem Stated complaint: ?Bone infection in R hand Time Seen by Provider: 10/08/22 03:47 Source: patient Mode of arrival: ambulatory Limitations: no limitations History of Present Illness HPI narrative: 62-year-old male came in for evaluation of right hand pain and possible infection. Patient was scratched by his own cat at home 2 weeks ago patient was presented to the hospital and was prescribed Augmentin which was not improving patient's symptoms and was changed to Keflex /+ doxycycline for another 10 days, went today to a walk-in clinic did an x-ray showed a concern of right pinky finger osteomyelitis patient came to the emergency department for further evaluation. Related Data Home Medications Medication Instructions Recorded Confirmed amlodipine 5 mg tablet 5 mg PO DAILY 12/23/21 12/23/21 atorvastatin 40 mg tablet 40 mg PO BEDTIME 12/23/21 12/23/21 ezetimibe 10 mg tablet 10 mg PO DAILY 12/23/21 12/23/21 hydrochlorothiazide 25 mg tablet 25 mg PO DAILY 12/23/21 12/23/21 Previous Rx's Medication Instructions Recorded cyclobenzaprine 10 mg tablet 10 mg PO TID PRN pain, muscle 11/26/21 spasm #15 tabs amoxicillin 875 mg-potassium 1 tab PO BID 10 days #20 tabs 09/29/22 clavulanate 125 mg tablet cephalexin 500 mg capsule 500 mg PO BID #14 caps 10/01/22 doxycycline monohydrate 100 mg 100 mg PO BID #14 caps 10/01/22 capsule Allergies Allergy/AdvReac Type Severity Reaction Status Date / Time No Known Allergies Allergy Verified 10/07/22 23:20 Review of Systems Review of Systems: All other systems are reviewed and are negative Constitutional: Reports as per HPI and Reports no additional constitutional complaints Eyes: Reports as per HPI and Reports no additional eye complaints Reports system reviewed and no additional complaints, except as documented Cardiovascular: Reports as per HPI and Reports no additional cardiovascular complaints Respiratory: Reports as per HPI and Reports no additional respiratory complaints Gastrointestinal: Reports as per HPI and Reports no additional gastrointestinal complaints Genitourinary: Reports no additional female genitourinary complaints Musculoskeletal: Reports no additional musculoskeletal complaints Skin/Breast: Reports system reviewed and no additional complaints, except as docu Psychiatric: Reports no additional psychiatric complaints Endocrine: Reports no additional endocrine complaints Hematologic/Lymphatic: Reports no additional hematologic/lymphatic complaints Allergic/Immunologic: Reports no additional allergic/immunologic complaints Reports system reviewed and no additional complaints, except as documented and Reports Abnormal speech present [facility] Past Medical History Medical History Abnormal brain MRI Asymptomatic hyperuricemia Elevated PSA History of colon polyps Hyperlipidemia Hypertension Left facial numbness Left-sided low back pain with sciatica Obese Torn meniscus Surgical History Hx of colonoscopy Social History Social History Patient Tobacco Use Status: Former Tobacco user Cigarette Packs Per Day: 1 Years Smoked: 18 Advance Directives: No Advance Directives Information Provided: No Physical Exam ED Vital Signs: Vital Signs - 24 hr 10/07/22 23:15 10/08/22 04:10 10/08/22 04:56 Temperature 98.1 F 98.4 F 98.4 F Pulse Rate 103 H 87 79 Respiratory Rate 18 17 12 Blood Pressure 125/85 114/80 117/81 Pulse Oximetry 99 98 94 Oxygen Delivery Method Room Air Room Air Room Air BMI result Body Mass Index 29.0 vital signs have been reviewed as appeared to be correct. Blood pressure normal. Heart rate normal. Respiration rate normal. Temperature normal. Oxygen saturation normal. Appearance: Alert. Oriented X3. No acute distress. Head: Normal external exam. Normocephalic. Atraumatic. No Colmenares signs noted. No raccoon eyes noted Eyes: PERRLA. EOMI. Conjunctiva and sclera normal. Eyelids normal. ENT: TM's Normal. Pharynx normal. Uvula midline. Moist mucous membranes. No trismus noted. No drooling noted. No muffled voice noted. Neck: Normal inspection. Neck supple. FROM. No adenopathy. Thyroid Normal. No meningeal signs. No neck mass noted. CVS: Normal heart rate and rhythm. Heart sound normal. No murmurs noted. Pulses normal throughout. Respiratory: No respiratory distress. Painless inspiration. Breath sounds normal. No wheezes/rales/rhonchi noted. Chest nontender. No accessory muscle usage noted or decreased air movement noted. Abdomen: Soft and nontender. Bowel sounds normal in all 4 quadrants. No distention noted. No organomegaly noted. No visible injury noted. Back: No CVA tenderness. Full range of motion noted. Skin: Skin warm and dry. Normal skin color. Normal skin turgor. No rashes/lesions/lacerations noted. Extremities: Right hand exam: Tenderness and swelling over the right 5th finger with no step-off or deformity, mild redness over the dorsum aspect of the right hand. Neuro: Oriented X 3. Cranial nerve exam: II-XII are grossly intact No motor deficit. No sensory deficit. Reflexes normal. Course Course Course Narrative: 62-year-old male started with a cat scratch to the right hand, patient failed multiple courses of oral antibiotic as an outpatient now is developing osteomyelitis of the right ring finger will start the patient on Zosyn and vancomycin, admit. Patient is not in severe sepsis or septic shock. Mild hypokalemia will replete orally. Medications Administered Discontinued Medications Generic Name Dose Route Start Last Admin Trade Name Freq PRN Reason Stop Dose Admin Piperacillin Sod/Tazobactam 50 mls @ 100 mls/hr 10/08/22 03:09 10/08/22 04:03 Sod 3.375 gm/ Sodium Chloride IV 10/08/22 03:38 100 mls/hr ONCE ONE Administration Vancomycin HCl 1,000 mg/ 270 mls @ 270 mls/hr 10/08/22 03:09 10/08/22 04:54 Sodium Chloride IV 10/08/22 04:08 270 mls/hr ONCE ONE Administration Potassium Chloride 40 meq 10/08/22 05:01 10/08/22 05:27 Potassium Chloride Packet 20 Meq Packet PO 10/08/22 05:02 40 meq ONCE ONE Administration Medical Decision Making Medical Records Medical records reviewed: Yes I reviewed the patient's medical records. Lab Data Lab results reviewed: Yes I reviewed the patient's lab results. Result diagrams: 10/07/22 23:28 10/07/22 23:28 Labs: Lab Results 10/07/22 10/07/22 10/08/22 Range/Units 23:28 23:28 03:23 WBC 11.6 H (4.8-10.8) X10*3/uL RBC 4.52 L (4.60-5.80) X10*6/uL Hgb 13.8 L (14.0-18.0) g/dl Hct 39.5 L (42.0-52.0) % MCV 87.4 (80.0-98.0) fL MCH 30.5 (27.0-33.0) pg MCHC 34.9 (31.0-36.0) g/dl RDW 12.7 (11.0-16.0) % Plt Count 484 H (160-400) X10*3/uL MPV 8.3 L (9.4-12.4) fL Immature Gran % (Auto) 0.7 H (0.0-0.4) % Neut % (Auto) 66.9 (45-73) % Lymph % (Auto) 20.1 (20-40) % [place] % (Auto) 9.8 (2-11) % Eos % (Auto) 2.0 (0-4) % Baso % (Auto) 0.5 (0-2) % Lymph # (Auto) 2.3 (1.2-4.9) X10*3/uL [place] # (Auto) 1.1 (0.1-1.2) X10*3/uL Eos # (Auto) 0.2 (0.0-0.4) X10*3/uL Baso # (Auto) 0.1 (0.0-0.2) X10*3/uL Abs Immat Gran (auto) 0.08 H (0.00-0.03) X10*3/uL Absolute Neuts (auto) 7.8 (2.0-8.3) x10*3/uL Absolute Nucleated RBC 0.000 (0.0-0.012) X10*3/uL Nucleated RBC % (auto) 0.0 (0.0-0.2) /100WBC Sodium 142 (135-145) mmol/L Potassium 3.1 L (3.3-5.1) mmol/L Chloride 101 (96-108) mmol/L Carbon Dioxide 24 (22-29) mmol/L Anion Gap 20 (12-20) BUN 15 (9-16) mg/dL Creatinine 1.01 (0.5-1.4) mg/dL Estim Creat Clear Calc 79.5 Estimated GFR > 60 Random Glucose 120 H (60-115) mg/dL Lactic Acid 1.8 (0.5-2.0) mmol/L Calcium 9.5 (8.4-10.2) mg/dL Total Bilirubin 0.4 (0.0-1.0) mg/dL AST 15 (5-37) U/L ALT 13 (0-40) U/L Alkaline Phosphatase 103 (39-117) U/L Total Protein 6.7 (6.5-8.0) g/dL Albumin 4.1 (3.5-5.0) g/dL Imaging Data Right hand x-ray: Attestation: I personally reviewed and interpreted this imaging study as follows: Radiologist's impression: 1.? Erosions and cortical disruption along the ulnar aspect of the distal fifth middle phalanx, concerning for osteomyelitis. 2.? Diffuse soft tissue swelling. ? Discharge Plan Discharge Clinical Impression: Hand osteomyelitis, right, Hypokalemia Patient Disposition: Admitted As Inpatient
--- NOTE | 2022-10-08 06:12 | PC.NURSE ---
pt medicated per Mar.
[2022-10-08 06:33] LABS: COVID-19 Test Negative (Negative)
[2022-10-08 07:02] VITALS: BP 117/86; PULSE 88; RESP 14; TEMP 37; O2SAT 100
[2022-10-08 08:12] VITALS: BP 116/75; PULSE 82; RESP 17; O2SAT 96
--- NOTE | 2022-10-08 08:25 | P.CONOP_ITS ---
History of Present Illness HPI Consult date: 10/08/22 Chief complaint: Right hand pain Narrative: 62 yo male who was admitted to the medical service for right hand cellulitis and possible osteomyelitis. he states he was bit by his cat, unsure of the exact date, but he noticed pain and redness/swelling of the right smal finger on 09/27. He was given PO abx without significant relief which prompted his visit to the ED. Ortho was consulted for further recommendations. Review of Systems Review of Systems: per [facility] Past Medical History Medical History Abnormal brain MRI Asymptomatic hyperuricemia Elevated PSA History of colon polyps Hyperlipidemia Hypertension Left facial numbness Left-sided low back pain with sciatica Obese Torn meniscus Surgical History Surgical History Hx of colonoscopy Social History Social History Household Members: Spouse Patient Tobacco Use Status: Former Tobacco user Cigarette Packs Per Day: 1 Years Smoked: 18 Meds Allergies Allergy/AdvReac Type Severity Reaction Status Date / Time No Known Allergies Allergy Verified 10/07/22 23:20 Active Medications: Current Medications Acetaminophen (Acetaminophen 325 Mg Tablet) 650 mg PO Q6H PRN PRN Reason: Pain, Mild (Pain Scale 1-3) Melatonin (Melatonin 3 Mg Tablet) 6 mg PO BEDTIME PRN PRN Reason: Insomnia Ondansetron HCl (Ondansetron Hcl 4 Mg/2 Ml Vial) 4 mg IVPUSH Q8H PRN PRN Reason: Nausea and Vomiting Sodium Chloride (0.9 % Sodium Chloride Flush 3 Ml Syringe) 3 ml [facility] [place] Admin: 10/08/22 07:30 Dose: Not Given Home Medications Medication Instructions Recorded Confirmed Last Taken Type amlodipine 5 mg tablet 5 mg PO DAILY 12/23/21 10/08/22 Unknown History atorvastatin 40 mg tablet 40 mg PO BEDTIME 12/23/21 10/08/22 Unknown History ezetimibe 10 mg tablet 10 mg PO DAILY 12/23/21 10/08/22 Unknown History hydrochlorothiazide 25 mg tablet 25 mg PO DAILY 12/23/21 10/08/22 Unknown History azithromycin 250 mg tablet 1 tab PO DIRECTED 10/08/22 10/08/22 Unknown History Physical Exam Vital Signs: Vital Signs: Last Vital Signs Temp 98.6 F 10/08/22 07:02 Pulse 82 10/08/22 08:12 Resp 17 10/08/22 08:12 BP 116/75 10/08/22 08:12 Pulse Ox 96 10/08/22 08:12 O2 Del Method 10/08/22 08:12 BMI result Body Mass Index 29.0 Const: General: healthy appearing, comfortable and no acute distress Extrem: Other: Right hand skin intact, no significant redness, swelling or abscess formation along the right forearm, wrist, hand or fingers. He has some tenderness along the DIP of the right small finger with soft tissue swelling. No pain in the palmar crease, thenar eminence, web spaces or flexor tendons. He can fully extend all digits. He can bring his fingers appro 1 cm above palmar crease with flexion but the small finger he can flex at the mcp 90, PIP 15. NVI. Results Labs Result Diagrams: 10/07/22 23:28 10/07/22 23:28 Labs: Abnormal lab results 10/07/22 10/07/22 Range/Units 23:28 23:28 WBC 11.6 H (4.8-10.8) X10*3/uL RBC 4.52 L (4.60-5.80) X10*6/uL Hgb 13.8 L (14.0-18.0) g/dl Hct 39.5 L (42.0-52.0) % Plt Count 484 H (160-400) X10*3/uL MPV 8.3 L (9.4-12.4) fL Immature Gran % (Auto) 0.7 H (0.0-0.4) % Abs Immat Gran (auto) 0.08 H (0.00-0.03) X10*3/uL Potassium 3.1 L (3.3-5.1) mmol/L Random Glucose 120 H (60-115) mg/dL H & H 10/07/22 Range/Units 23:28 Hgb 13.8 L (14.0-18.0) g/dl Hct 39.5 L (42.0-52.0) % All other labs normal. Diagnostic results Wrist/Hand x-ray: image reviewed (Right small finger has some degenerative changes wtih osteophyte formation, possible osteomyelitis along the PIP of the small finger) Assessment and Plan (1) Cellulitis: Status: Acute Plan I discussed the case with Dr Colmenares, out hand surgeon . At this time, there is no acute infection process. In the possible setting of osteomyelitis, there is sno acute or emergent need for surgical intervention. Continue abx prn for cellulitis and he can f.u out patient in our clinic for further recommendations of possible osteomyelitis of the right small finger. Procedures Date of Service Date of Service: 10/08/22
--- NOTE | 2022-10-08 08:59 | PHA.MEDREC ---
Pharmacy Consult ? Medication Reconciliation Pharmacy has completed the medication reconciliation.
--- NOTE | 2022-10-08 11:39 | MHC.CM.PN ---
Attempted to meet with patient in regards to discharge planning. Patient currently sleeping. No family present. Will attempt to meet again. Continue to monitor for d/c needs.
[2022-10-08] MEDS: Ampicillin Sodium/Sulbactam Na 3 GM in 0.9 % Sodium Chloride 100 ML IV ×2 (14:50→20:17)
[2022-10-08 15:16] VITALS: BP 141/80; PULSE 81; RESP 16; TEMP 36.9; O2SAT 97
[2022-10-08] MEDS: 0.9 % Sodium Chloride Flush 3 ML SYRINGE IVFLUSH ×2 (15:23→23:29)
--- NOTE | 2022-10-08 15:35 | HO.PM.IMPN ---
Subjective Subjective Date of Service: 10/08/22 Interval History: No acute issues since admission Review of Systems Complains of minimal right hand pain Denies chest pain Denies shortness of breath Denies nausea vomiting diarrhea Physical Exam Vital Signs: Vital Signs: Last Vital Signs Temp 98.4 F 10/08/22 15:16 Pulse 81 10/08/22 15:16 Resp 16 10/08/22 15:16 BP 141/80 H 10/08/22 15:16 Pulse Ox 97 10/08/22 15:16 O2 Del Method 10/08/22 15:16 BMI result Body Mass Index 29.0 Const: Other: No acute distress Resp: Other: Clear to auscultation bilaterally Cardio: Other: No S4; positive S1-S2; no S3 murmurs rubs or gallops Extrem: Other: Erythema over dorsum of right hand extending to wrist some improvement overnight Objective Data Active Medications Acetaminophen (Acetaminophen 325 Mg Tablet) 650 mg PO Q6H PRN PRN Reason: Pain, Mild (Pain Scale 1-3) Amlodipine Besylate (Amlodipine Besylate 5 Mg Tablet) 5 mg PO DAILY [facility]; Protocol Atorvastatin Calcium (Atorvastatin Calcium 40 Mg Tablet) 40 mg PO BEDTIME [facility] Ezetimibe (Ezetimibe 10 Mg Tablet) 10 mg PO DAILY [facility] Hydrochlorothiazide (Hydrochlorothiazide 25 Mg Tablet) 25 mg PO DAILY [facility]; Protocol Ampicillin Sodium/Sulbactam (Sodium 3 gm/ Sodium Chloride) 100 mls @ 200 mls/hr IV Q6H [facility] Last Infusion: 10/08/22 15:21 Dose: 0 mls/hr Documented By: CALVIN Melatonin (Melatonin 3 Mg Tablet) 6 mg PO BEDTIME PRN PRN Reason: Insomnia Ondansetron HCl (Ondansetron Hcl 4 Mg/2 Ml Vial) 4 mg IVPUSH Q8H PRN PRN Reason: Nausea and Vomiting Sodium Chloride (0.9 % Sodium Chloride Flush 3 Ml Syringe) 3 ml IVFLUSH QSHIFT [facility] Last Admin: 10/08/22 15:23 Dose: 3 ml Documented By: CALVIN Labs CBC & Chem 7: 10/07/22 23:28 10/07/22 23:28 Labs: Laboratory Results - last 24 hr 10/07/22 10/07/22 10/08/22 23:28 23:28 03:23 MCV 87.4 MCH 30.5 MCHC 34.9 RDW 12.7 Plt Count 484 H MPV 8.3 L Immature Gran % (Auto) 0.7 H Neut % (Auto) 66.9 Lymph % (Auto) 20.1 [place] % (Auto) 9.8 Eos % (Auto) 2.0 Baso % (Auto) 0.5 Lymph # (Auto) 2.3 [place] # (Auto) 1.1 Eos # (Auto) 0.2 Baso # (Auto) 0.1 Abs Immat Gran (auto) 0.08 H Absolute Neuts (auto) 7.8 Absolute Nucleated RBC 0.000 Nucleated RBC % (auto) 0.0 Anion Gap 20 Estim Creat Clear Calc 79.5 Estimated GFR > 60 Random Glucose 120 H Lactic Acid 1.8 Calcium 9.5 Total Bilirubin 0.4 AST 15 ALT 13 Alkaline Phosphatase 103 Total Protein 6.7 Albumin 4.1 COVID-19 ([facility]) COVID-19 Clin Com 10/08/22 06:01 MCV MCH MCHC RDW Plt Count MPV Immature Gran % (Auto) Neut % (Auto) Lymph % (Auto) [place] % (Auto) Eos % (Auto) Baso % (Auto) Lymph # (Auto) [place] # (Auto) Eos # (Auto) Baso # (Auto) Abs Immat Gran (auto) Absolute Neuts (auto) Absolute Nucleated RBC Nucleated RBC % (auto) Anion Gap Estim Creat Clear Calc Estimated GFR Random Glucose Lactic Acid Calcium Total Bilirubin AST ALT Alkaline Phosphatase Total Protein Albumin COVID-19 ([facility]) Negative COVID-19 Clin Com See Note Assessment and Plan (1) Hand osteomyelitis, right: Status: Acute (2) Hypertension: Status: Acute (3) Hyperlipidemia: Status: Acute Plan This is a 62-year-old male with pertinent history of essential hypertension, mixed hyperlipidemia presents to the emergency department after abnormal hand x-ray(failed outpatient therapies with oral antibiotics) 1. Acute right fifth phalanx osteomyelitis (by x-ray) - appreciate ID input -check MRI right hand -Unasyn as ordered 2. HTN - acceptable control on current therapies -adjust as indicated 3. Hyperlipidemia -continue outpatient therapies Lovenox Full code Will require ongoing hospitalization for IV antibiotics until osteomyelitis confirmed by MRI Quality Stroke Does the patient have a stroke diagnosis?: No VTE Prior VTE?: No VTE Risk Level:: Medical - low VTE Device Contraindication: Treatment Not Indicated VTE Drug Contraindication: Treatment Not Indicated
[2022-10-08] MEDS: Enoxaparin Sodium 40 MG/0.4 ML SYRINGE SUBCUT (16:12)
[2022-10-08] MEDS: Atorvastatin Calcium 40 MG TABLET PO (20:17)
--- NOTE | 2022-10-08 20:46 | PC.NURSE ---
Report given to M3 nurse Emerson- pt tranported to floor via WC
[2022-10-08 21:09] VITALS: BMI 29.2
--- NOTE | 2022-10-08 23:06 | W.PM.IDCN ---
History of Present Illness Data of Consult Service Date: 10/08/22 Requesting physician: Stefan Kate Primary Care Provider: Ernesto Vasquez III, MD HPI Reason for consult: right hand infection,osteomyelitis He presents with right hand pain and swelling,especially fifth finger cant bend in. He had been scratched by 18 year old cat while giving it insulin on 09/26, He has been prescribed Augmentin on 09/29 after presenting with swelling right hand. He had no fever or chills Review of Systems Review of Systems: Yes all other systems are reviewed and are negative [facility] Past Medical History Medical History Abnormal brain MRI Asymptomatic hyperuricemia Elevated PSA History of colon polyps Hyperlipidemia Hypertension Left facial numbness Left-sided low back pain with sciatica Obese Torn meniscus Family History Family history: reviewed and not pertinent Surgical History Surgical History Hx of colonoscopy Social History Social History Household Members: Spouse Patient Tobacco Use Status: Former Tobacco user Cigarette Packs Per Day: 1 Years Smoked: 18 Meds Allergies Allergy/AdvReac Type Severity Reaction Status Date / Time No Known Allergies Allergy Verified 10/07/22 23:20 Active Medications: Current Medications Acetaminophen (Acetaminophen 325 Mg Tablet) 650 mg PO Q6H PRN PRN Reason: Pain, Mild (Pain Scale 1-3) Amlodipine Besylate (Amlodipine Besylate 5 Mg Tablet) 5 mg PO DAILY [facility]; Protocol Atorvastatin Calcium (Atorvastatin Calcium 40 Mg Tablet) 40 mg PO BEDTIME [facility] Last Admin: 10/08/22 20:17 Dose: 40 mg Ezetimibe (Ezetimibe 10 Mg Tablet) 10 mg PO DAILY [facility] Enoxaparin Sodium (Enoxaparin Sodium 40 Mg/0.4 Ml Syringe) 40 mg SUBCUT Q24H [facility] Last Admin: 10/08/22 16:12 Dose: 40 mg Hydrochlorothiazide (Hydrochlorothiazide 25 Mg Tablet) 25 mg PO DAILY [facility]; Protocol Ampicillin Sodium/Sulbactam (Sodium 3 gm/ Sodium Chloride) 100 mls @ 200 mls/hr IV Q6H [facility] Last Infusion: 10/08/22 21:34 Dose: Infused Melatonin (Melatonin 3 Mg Tablet) 6 mg PO BEDTIME PRN PRN Reason: Insomnia Ondansetron HCl (Ondansetron Hcl 4 Mg/2 Ml Vial) 4 mg IVPUSH Q8H PRN PRN Reason: Nausea and Vomiting Sodium Chloride (0.9 % Sodium Chloride Flush 3 Ml Syringe) 3 ml IVFLUSH QSHIFT [facility] Last Admin: 10/08/22 15:23 Dose: 3 ml Home Medications Medication Instructions Recorded Confirmed Last Taken Type amlodipine 5 mg tablet 5 mg PO DAILY 12/23/21 10/08/22 Unknown History atorvastatin 40 mg tablet 40 mg PO BEDTIME 12/23/21 10/08/22 Unknown History ezetimibe 10 mg tablet 10 mg PO DAILY 12/23/21 10/08/22 Unknown History hydrochlorothiazide 25 mg tablet 25 mg PO DAILY 12/23/21 10/08/22 Unknown History azithromycin 250 mg tablet 1 tab PO DIRECTED 10/08/22 10/08/22 Unknown History Physical Exam Vital Signs: Vital Signs: Last Vital Signs Temp 98.4 F 10/08/22 15:16 Pulse 81 10/08/22 15:16 Resp 16 10/08/22 15:16 BP 141/80 H 10/08/22 15:16 Pulse Ox 97 10/08/22 15:16 O2 Del Method 10/08/22 15:16 BMI result Body Mass Index 29.2 Const: General: cooperative HEENT: Head: Yes normal to inspection Face and sinus: Yes normal facial exam Mouth: Normal oral and palatal mucosa present Teeth and gingiva: dentition normal Eyes: General: appearance normal, both eyes and all related structures Pupils: Equal, round and reactive pupils present Resp: Effort & Inspection: normal respiratory effort Cardio: Rate: regular rate Rhythm: regular rhythm GI: Palpation (GI): Soft to palpation and nontender : General: Yes no CVA tenderness Back/Spine/Pelvis: Back: no CVA tenderness Skin: General skin exam: no rashes or lesions noted Neuro: General: moves all extremities Cranial nerves: Yes Equal, round and reactive pupils present Extrem: Other: fifth finger trouble bending fifth finger Psych: Appearance: grossly normal Results Labs CBC & Chem 7: 10/07/22 23:28 10/07/22 23:28 Labs: Short CBC 10/07/22 Range/Units 23:28 WBC 11.6 H (4.8-10.8) X10*3/uL Hgb 13.8 L (14.0-18.0) g/dl Hct 39.5 L (42.0-52.0) % Plt Count 484 H (160-400) X10*3/uL BMP 10/07/22 23:28 Sodium 142 Potassium 3.1 L Chloride 101 Carbon Dioxide 24 BUN 15 Creatinine 1.01 Calcium 9.5 Liver Function 10/07/22 Range/Units 23:28 Total Bilirubin 0.4 (0.0-1.0) mg/dL AST 15 (5-37) U/L ALT 13 (0-40) U/L Alkaline Phosphatase 103 (39-117) U/L Albumin 4.1 (3.5-5.0) g/dL Assessment and Plan (1) Hand osteomyelitis, right: Status: Acute He has possible pasteurella and gram positive cocci He has discomfort and possible tendon involvement He is UTI on tetanus shot and cat vaccinated. Plan Unasyn or Zosyn Check MRI Probable six weeks IV if osteomyelitis found
[2022-10-08] MEDS: Acetaminophen 325 MG TABLET 650 MG PO (23:22)
[2022-10-08 23:45] VITALS: BP 142/86; PULSE 86; RESP 18; TEMP 36.2; O2SAT 98
[2022-10-09] MEDS: Ampicillin Sodium/Sulbactam Na 3 GM in 0.9 % Sodium Chloride 100 ML IV ×4 (01:44→19:42)
[2022-10-09 04:00] VITALS: BP 166/94; PULSE 62; RESP 18; TEMP 36.4; O2SAT 98
[2022-10-09 05:44] LABS: MANUAL DIFF FLAG NO
[2022-10-09 05:47] LABS: Basophils Absolute Auto 0.1 X10*3/uL (0.0-0.2); Eosinophils Absolute Auto 0.2 X10*3/uL (0.0-0.4); Eosinophils Percent Auto 2.8 % (0-4); Hematocrit 40.3 % (42.0-52.0); Hemoglobin 13.8 g/dl (14.0-18.0); Imm Gran Abs Auto 0.05 X10*3/uL (0.00-0.03); Imm Gran Pct Auto 0.6 % (0.0-0.4); Lymphocytes Absolute Auto 1.9 X10*3/uL (1.2-4.9); Lymphocytes Percent Auto 24.5 % (20-40); Mean Corpuscular HGB Conc 34.2 g/dl (31.0-36.0); Mean Corpuscular Hemoglobin 30.1 pg (27.0-33.0); Mean Corpuscular Volume 87.8 fL (80.0-98.0); Mean Platelet Volume 8.5 fL (9.4-12.4); Monocytes Absolute Auto 0.8 X10*3/uL (0.1-1.2); Monocytes Percent Auto 10.5 % (2-11); Neutrophils Absolute Auto 4.7 x10*3/uL (2.0-8.3); Neutrophils Percent Auto 60.6 % (45-73); Platelet Count 494 X10*3/uL (160-400); Red Blood Count 4.59 X10*6/uL (4.60-5.80); Red Cell Distribution Width 12.7 % (11.0-16.0); White Blood Count 7.7 X10*3/uL (4.8-10.8)
[2022-10-09 06:12] LABS: Alanine Aminotransferase 9 U/L (0-40); Albumin Level 3.6 g/dL (3.5-5.0); Alkaline Phosphatase 83 U/L (39-117); Anion Gap 15 (12-20); Aspartate Amino Transferase 13 U/L (5-37); Bilirubin Total 0.7 mg/dL (0.0-1.0); Blood Urea Nitrogen 11 mg/dL (9-16); Calcium 9.3 mg/dL (8.4-10.2); Calcium 9.4 mg/dL (8.4-10.2); Carbon Dioxide 27 mmol/L (22-29); Chloride 104 mmol/L (96-108); Chloride 105 mmol/L (96-108); Creatinine Clr Calc Pharmacy 115.2; Creatinine Clr Calc Pharmacy 116.9; Estimated Glomerular Filt Rate > 60; Glucose Fasting 92 mg/dL (60-99); Glucose Random 92 mg/dL (60-115); Sodium 142 mmol/L (135-145); Sodium 143 mmol/L (135-145); Total Protein 5.8 g/dL (6.5-8.0)
[2022-10-09 07:03] VITALS: BP 143/86; PULSE 74; RESP 18; TEMP 36.9; O2SAT 97
[2022-10-09] MEDS: Ezetimibe 10 MG TABLET PO (07:40)
[2022-10-09] MEDS: amLODIPine Besylate 5 MG TABLET PO (07:40)
[2022-10-09] MEDS: 0.9 % Sodium Chloride Flush 3 ML SYRINGE IVFLUSH ×3 (07:40→20:56)
[2022-10-09] MEDS: hydroCHLOROthiazide 25 MG TABLET PO (07:40)
[2022-10-09] MEDS: oxyCODONE HCl Immed Release 5 MG TABLET PO ×3 (08:48→19:41)
--- NOTE | 2022-10-09 10:25 | MHC.CM.PN ---
EMR REVIEWED, PT ADMITTTED W/RIGHT HAND PAIN, CELLULITIS AND POSSIBLE OSTEO, PER HOSPITALIST PT WILL NEED GROUP HOME IV ABX, PT REPORTS HE WOULD LIKE TO GO BACK TO WORK [employer], PT HAS NO PREFERENCE OF [facility] AND CM HAS SENT REFERRAL TO [facility] W/REQUEST FOR [facility] TO PROVIDE NSG WELL. PCP: PADILLA HAMMOND AT [facility], PT DENIES BEING VACCINATED FOR COVID. ANTIC D/C FRI W/[facility] FOR IV ABX
[2022-10-09 11:15] VITALS: BP 139/90; PULSE 77; RESP 18; TEMP 36.2; O2SAT 97
--- NOTE | 2022-10-09 13:34 | HO.PM.IMPN ---
Subjective Subjective Date of Service: 10/09/22 Interval History: Doing well overall. Pain control adequate Review of Systems Complains of minimal right hand pain Denies chest pain Denies shortness of breath Denies nausea vomiting diarrhea Physical Exam Vital Signs: Vital Signs: Last Vital Signs Temp 97.1 F 10/09/22 11:15 Pulse 77 10/09/22 11:15 Resp 18 10/09/22 11:15 BP 139/90 H 10/09/22 11:15 Pulse Ox 97 10/09/22 11:15 O2 Del Method 10/09/22 11:15 BMI result Body Mass Index 29.2 Const: Other: No acute distress Resp: Other: Clear to auscultation bilaterally Cardio: Other: No S4; positive S1-S2; no S3 murmurs rubs or gallops Extrem: Other: Erythema over dorsum of right hand extending to wrist some improvement overnight Objective Data Active Medications Acetaminophen (Acetaminophen 325 Mg Tablet) 650 mg PO Q6H PRN PRN Reason: Pain, Mild (Pain Scale 1-3) Last Admin: 10/08/22 23:22 Dose: 650 mg Documented By: JACQUI Amlodipine Besylate (Amlodipine Besylate 5 Mg Tablet) 5 mg PO DAILY [facility]; Protocol Last Admin: 10/09/22 07:40 Dose: 5 mg Documented By: ANGLE Atorvastatin Calcium (Atorvastatin Calcium 40 Mg Tablet) 40 mg PO BEDTIME [facility] Last Admin: 10/08/22 20:17 Dose: 40 mg Documented By: MARA Ezetimibe (Ezetimibe 10 Mg Tablet) 10 mg PO DAILY [facility] Last Admin: 10/09/22 07:40 Dose: 10 mg Documented By: ANGLE Enoxaparin Sodium (Enoxaparin Sodium 40 Mg/0.4 Ml Syringe) 40 mg SUBCUT Q24H [facility] Last Admin: 10/08/22 16:12 Dose: 40 mg Documented By: CALVIN Hydrochlorothiazide (Hydrochlorothiazide 25 Mg Tablet) 25 mg PO DAILY [facility]; Protocol Last Admin: 10/09/22 07:40 Dose: 25 mg Documented By: ANGLE Ampicillin Sodium/Sulbactam (Sodium 3 gm/ Sodium Chloride) 100 mls @ 200 mls/hr IV Q6H [facility] Last Infusion: 10/09/22 08:19 Dose: 0 mls/hr Documented By: ANGLE Melatonin (Melatonin 3 Mg Tablet) 6 mg PO BEDTIME PRN PRN Reason: Insomnia Ondansetron HCl (Ondansetron Hcl 4 Mg/2 Ml Vial) 4 mg IVPUSH Q8H PRN PRN Reason: Nausea and Vomiting Oxycodone HCl (Oxycodone Hcl Immed Release 5 Mg Tablet) 5 mg PO Q4H PRN PRN Reason: Pain, Moderate (Pain Scale 4-6 Last Admin: 10/09/22 08:48 Dose: 5 mg Documented By: ANGLE Sodium Chloride (0.9 % Sodium Chloride Flush 3 Ml Syringe) 3 ml IVFLUSH QSHIFT [facility] Last Admin: 10/09/22 07:40 Dose: 3 ml Documented By: ANGLE Labs CBC & Chem 7: 10/09/22 05:27 10/09/22 05:27 Labs: Laboratory Results - last 24 hr 10/09/22 10/09/22 10/09/22 05:27 05:27 05:27 MCV 87.8 MCH 30.1 MCHC 34.2 RDW 12.7 Plt Count 494 H MPV 8.5 L Immature Gran % (Auto) 0.6 H Neut % (Auto) 60.6 Lymph % (Auto) 24.5 [place] % (Auto) 10.5 Eos % (Auto) 2.8 Baso % (Auto) 1.0 Lymph # (Auto) 1.9 [place] # (Auto) 0.8 Eos # (Auto) 0.2 Baso # (Auto) 0.1 Abs Immat Gran (auto) 0.05 H Absolute Neuts (auto) 4.7 Absolute Nucleated RBC 0.000 Nucleated RBC % (auto) 0.0 Anion Gap 15 15 Estim Creat Clear Calc 116.9 115.2 Estimated GFR > 60 > 60 Random Glucose 92 Fasting Glucose 92 Calcium 9.4 9.3 Total Bilirubin 0.7 AST 13 ALT 9 Alkaline Phosphatase 83 Total Protein 5.8 L Albumin 3.6 Microbiology Microbiology Results: Microbiology 10/08/22 03:23 Blood Culture - Preliminary Blood - Venous No growth after 24 hours. 10/08/22 03:23 Blood Culture - Preliminary Blood - Venous No growth after 24 hours. Assessment and Plan (1) Hand osteomyelitis, right: Status: Acute (2) Hypertension: Status: Acute (3) Hyperlipidemia: Status: Acute Plan This is a 62-year-old male with pertinent history of essential hypertension, mixed hyperlipidemia presents to the emergency department after abnormal hand x-ray(failed outpatient therapies with oral antibiotics) 1. Acute right fifth phalanx osteomyelitis (by x-ray) - appreciate ID input -check MRI right hand... Revisit ID before PICC line -Unasyn/vancomycin as ordered 2. HTN - acceptable control on current therapies -adjust as indicated 3. Hyperlipidemia -continue outpatient therapies Lovenox Full code Will require ongoing hospitalization for IV antibiotics until osteomyelitis confirmed by MRI Quality Stroke Does the patient have a stroke diagnosis?: No VTE Prior VTE?: No VTE Risk Level:: Medical - low VTE Device Contraindication: Treatment Not Indicated VTE Drug Contraindication: Treatment Not Indicated
[2022-10-09 15:01] VITALS: BP 137/92; PULSE 78; RESP 17; TEMP 36.3; O2SAT 98
[2022-10-09] MEDS: Enoxaparin Sodium 40 MG/0.4 ML SYRINGE SUBCUT (16:45)
[2022-10-09 19:20] VITALS: BP 121/79; PULSE 80; RESP 18; TEMP 36.5; O2SAT 97
[2022-10-09] MEDS: Atorvastatin Calcium 40 MG TABLET PO (19:42)
[2022-10-09 23:47] VITALS: BP 138/87; PULSE 77; RESP 18; TEMP 36.4; O2SAT 97
[2022-10-10] MEDS: Ampicillin Sodium/Sulbactam Na 3 GM in 0.9 % Sodium Chloride 100 ML IV ×2 (01:57→07:49)
[2022-10-10 04:00] VITALS: BP 148/89; PULSE 64; RESP 18; TEMP 36.5; O2SAT 98
[2022-10-10 04:32] VITALS: BP 142/74; PULSE 66
[2022-10-10 06:09] LABS: MANUAL DIFF FLAG NO
[2022-10-10 06:16] LABS: Basophils Absolute Auto 0.1 X10*3/uL (0.0-0.2); Basophils Percent Auto 0.6 % (0-2); Eosinophils Absolute Auto 0.2 X10*3/uL (0.0-0.4); Eosinophils Percent Auto 2.6 % (0-4); Hematocrit 39.2 % (42.0-52.0); Hemoglobin 13.2 g/dl (14.0-18.0); Imm Gran Abs Auto 0.04 X10*3/uL (0.00-0.03); Imm Gran Pct Auto 0.5 % (0.0-0.4); Lymphocytes Absolute Auto 2.1 X10*3/uL (1.2-4.9); Lymphocytes Percent Auto 25.4 % (20-40); Mean Corpuscular HGB Conc 33.7 g/dl (31.0-36.0); Mean Corpuscular Hemoglobin 29.9 pg (27.0-33.0); Mean Corpuscular Volume 88.7 fL (80.0-98.0); Mean Platelet Volume 8.6 fL (9.4-12.4); Monocytes Percent Auto 11.9 % (2-11); Neutrophils Absolute Auto 4.9 x10*3/uL (2.0-8.3); Platelet Count 493 X10*3/uL (160-400); Red Blood Count 4.42 X10*6/uL (4.60-5.80); Red Cell Distribution Width 12.5 % (11.0-16.0); White Blood Count 8.4 X10*3/uL (4.8-10.8)
[2022-10-10 06:29] LABS: Alanine Aminotransferase 10 U/L (0-40); Albumin Level 3.7 g/dL (3.5-5.0); Alkaline Phosphatase 88 U/L (39-117); Anion Gap 15 (12-20); Aspartate Amino Transferase 12 U/L (5-37); Bilirubin Total 0.7 mg/dL (0.0-1.0); Blood Urea Nitrogen 9 mg/dL (9-16); Calcium 9.3 mg/dL (8.4-10.2); Carbon Dioxide 30 mmol/L (22-29); Chloride 99 mmol/L (96-108); Creatinine Clr Calc Pharmacy 106.1; Estimated Glomerular Filt Rate > 60; Glucose Fasting 101 mg/dL (60-99); Potassium 4.3 mmol/L (3.3-5.1); Sodium 140 mmol/L (135-145); Total Protein 5.9 g/dL (6.5-8.0)
[2022-10-10 07:42] VITALS: BP 134/78; PULSE 67; RESP 18; TEMP 36.7; O2SAT 96
[2022-10-10] MEDS: amLODIPine Besylate 5 MG TABLET PO (07:48)
[2022-10-10] MEDS: 0.9 % Sodium Chloride Flush 3 ML SYRINGE IVFLUSH (07:49)
[2022-10-10] MEDS: Ezetimibe 10 MG TABLET PO (07:49)
[2022-10-10] MEDS: hydroCHLOROthiazide 25 MG TABLET PO (07:49)
--- NOTE | 2022-10-10 09:58 | MHC.CM.PN ---
Addendum entered by Alejandra Fagan RN 10/10/22 12:57: FINAL ABX CEFTRIAXONE 2GM X 6WKS W/A $76.47 COPAY PER WEEK. Original Note: CM ATTEMPTED TO MEET W/PT TO DISCUSS COPAY FOR ABX HOWEVER PT OFF UNIT FOR PICC LINE INSERTION, ANTIC PT WILL D/C HOME TODAY W/OPTION CARE FOR IV ABX DELIVERY AND NURSING. PT WILL HAVE FAMILY FOR TRANSPORT.
--- NOTE | 2022-10-10 10:46 | PM.EVENT ---
Event Note Date of Service: 11/24/22 Event Note: IV Ceftriaxone 2g daily plus po Levaquin 750 mg daily for six weeks
--- NOTE | 2022-10-10 11:56 | HO.PICC ---
PICC Line Insertion NPICC Diagnosis: right hand wound Indication: detention antibiotics needed Pertinent Labs: reviewed Technique: Following informed consent including risks, benefits and alternatives and using sterile technique including cap and mask, sterile gown, glove and drape, the left arm was prepped and draped in the usual sterile fashion of full barrier technique with G. Following completion of [place] Protocol the skin and soft tissues were anesthetized with 1% Lidocaine plain. Using ultrasound guidance, left basilic vein access was obtained twice by Alexx Blount RN, but unable to pass guidewire. Left brachial vein was then accessed on first attempt by Madyson Angel RN. Over an 0.018 wire through peel-away sheath, a 4FR Single Lumen PASV PICC line was positioned. Catheter length is 51 CM internal length, 0 CM external length, for a total trimmed length of 51 CM. The procedure was performed in S272. Tip verification was performed by Kian Higuera with [place]lock 3CG. Tip located in SVC. Ultrasound was used to document vein patency and for needle entry. A formal ultrasound picture and cardiac rhythm strip was recorded. Vascular Custodial Aide has released the line for use and it is currently dressed with a StatLock, Tegaderm, and CHG disc. Verification has been performed for blood return and line patency. Arm Circumference: 29 CM Equipment: [place] Power PICC Solo Catheter Type: 4FR Single Lumen PASV PICC Lot #: [id number]
--- NOTE | 2022-10-10 11:57 | P.DS_ITS ---
DS: Providers Provider Date of Service: 10/10/22 Date of admission: 10/08/22 05:02 Date of discharge: 10/10/22 Primary care physician: Ernesto Vasquez III, MD Consults: 10/08/22 05:03 Consult to Infectious Diseases Routine Consulting Provider: Agnes Jackson Reason for consultation: fifth phalnyx osteo Has provider been notified: No Consult to Orthopedics Routine Consulting Provider: Dallas Beaulieu Reason for consultation: fifth phalnyx osteo Has provider been notified: No DS: Diagnosis Discharge Diagnosis (1) Hand osteomyelitis, right: Status: Acute (2) Hypertension: Status: Acute (3) Hyperlipidemia: Status: Acute DS: Summary Hospital Course Hospital Course: 62-year-old male with pertinent history of essential hypertension, mixed hyperlipidemia presents to the emergency department after abnormal hand x-ray.? Patient was seen in the ER twice previously for right hand cellulitis due to cat bite. Patient was given 2 separate p.o. antibiotic course and has tried Augmentin, doxycycline and cephalexin as an outpatient.? He states he noticed improvement in right hand swelling, redness but it never resolved.? Patient had worsening right 5th finger swelling, redness and pain.? Pain is constant, nonradiating and worse with any movement. Patient got an x-ray as an outpatient and was asked to come to the ER for concerns of osteomyelitis. Patient denies fever, chills, nausea, vomiting, chest discomfort, palpitations, shortness of breath, abdominal pain, changes in urinary or bowel habits. Plain films and MRI consistent with osteomyelitis.. Patient admitted started on Unasyn with improvement in his presentation overall next 48 hours. Id consult placed; blood cultures x2 negative over 48 hours. Recommendation; ceftriaxone 2 g daily for 6 weeks along with Levaquin 750 mg daily for 6 weeks. Follow-up appointment made with Dr. Jackson for 10/22/2022 at 13:00 Time Spent with Patient Time attestation: Total time spent providing and/or coordinating discharge services: Discharge coordination time: Greater than 30 minutes Quality: Safe Use of Opioids Does Pt have an Active Cancer Diagnosis on the Problem List?: No Quality: Stroke Does the patient have a stroke diagnosis?: No Physical Exam Vital Signs: Vital Signs: Last Vital Signs Temp 98.1 F 10/10/22 07:42 Pulse 67 10/10/22 07:42 Resp 18 10/10/22 07:42 BP 134/78 10/10/22 07:42 Pulse Ox 96 10/10/22 07:42 O2 Del Method 10/10/22 07:42 BMI result Body Mass Index 29.2 Const: Other: No acute distress Resp: Other: Clear to auscultation bilaterally Cardio: Other: No S4; positive S1-S2; no S3 murmurs rubs or gallops Extrem: Other: Erythema over dorsum of right hand extending to wrist some improvement overnight DS: Data Data Completed and Pending Labs on day of discharge: Laboratory Results - last 24 hr 10/10/22 10/10/22 05:08 05:08 WBC 8.4 RBC 4.42 L Hgb 13.2 L Hct 39.2 L MCV 88.7 MCH 29.9 MCHC 33.7 RDW 12.5 Plt Count 493 H MPV 8.6 L Immature Gran % (Auto) 0.5 H Neut % (Auto) 59.0 Lymph % (Auto) 25.4 [place] % (Auto) 11.9 H Eos % (Auto) 2.6 Baso % (Auto) 0.6 Lymph # (Auto) 2.1 [place] # (Auto) 1.0 Eos # (Auto) 0.2 Baso # (Auto) 0.1 Abs Immat Gran (auto) 0.04 H Absolute Neuts (auto) 4.9 Absolute Nucleated RBC 0.000 Nucleated RBC % (auto) 0.0 Sodium 140 Potassium 4.3 Chloride 99 Carbon Dioxide 30 H Anion Gap 15 BUN 9 Creatinine 0.76 Estim Creat Clear Calc 106.1 Estimated GFR > 60 Fasting Glucose 101 H Calcium 9.3 Total Bilirubin 0.7 AST 12 ALT 10 Alkaline Phosphatase 88 Total Protein 5.9 L Albumin 3.7 Preliminary micro results at discharge 10/08/22 03:23 Blood Culture - Preliminary Blood - Venous No growth after 48 hours. 10/08/22 03:23 Blood Culture - Preliminary Blood - Venous No growth after 48 hours. Discharge Plan Discharge Anticipated Discharge Date/Time: 10/08/22 13:46 Patient Disposition: Home, Self-Care Discharge Diagnosis: Right hand osteomyelitis Referrals: Ernesto Vasquez III, MD [Primary Care Provider] - 1 Week Discharge Medications: New oxycodone 5 mg Tablet 5 mg PO Q4H PRN (Reason: Pain, Moderate (Pain Scale 4-6) Qty: 12 0RF Rx Instructions: Partial Fill upon patient request. ceftriaxone 2 gram recon soln 2 g IM DAILY Qty: 42 0RF levofloxacin 750 mg tablet 750 mg PO DAILY 42 Days Qty: 42 0RF Continued amlodipine 5 mg tablet 5 mg PO DAILY atorvastatin 40 mg tablet 40 mg PO BEDTIME hydrochlorothiazide 25 mg tablet 25 mg PO DAILY ezetimibe 10 mg tablet 10 mg PO DAILY Discontinued doxycycline monohydrate 100 mg capsule 100 mg PO BID Qty: 14 0RF cephalexin 500 mg capsule 500 mg PO BID Qty: 14 0RF azithromycin 250 mg tablet 1 tab PO DIRECTED Discharge Orders: Discharge Order (Routine); Ordered 10/10/22 Ordered By: Stefan Kate Diet: Advance to usual diet Activity on Discharge: As tolerated Stand Alone Forms: Patient Portal Discharge page Care Plan Goals: Complete 6 weeks of ceftriaxone IV daily along with Levaquin 750 daily p.o. Health Concerns: You may return to work; keep PICC line covered Plan of Treatment: You have a follow-up appointment with Dr. Jackson on Thursday10/22/2022 at 13:00. You need to call your PCP for a referral prior to that Assessment: See discharge summary
[2022-10-10 12:00] VITALS: BP 142/94; PULSE 93; RESP 18; TEMP 36.4; O2SAT 98
[2022-10-10] MEDS: cefTRIAXone sodium 2 GM in 0.9 % Sodium Chloride 50 ML IV (12:06)
== END 2022-10-10 14:16 | disposition home or self-care (01) | DRG 541 ==
LOC: HO.ED 10-08 03:47 → HO.EDOVER 10-08 05:12 → HO.S3 10-08 19:02
PROVIDERS: Admitting Provider Student in an Organized Health Care Education/Training Program; Emergency Provider Emergency Medicine; PCP Internal Medicine; Visit Provider Hospitalist
DX: M86.141 Other acute osteomyelitis, right hand (principal); E78.2 Mixed hyperlipidemia; I10 Essential (primary) hypertension; E87.6 Hypokalemia; L03.011 Cellulitis of right finger; Z20.822 Contact with and (suspected) exposure to COVID-19; Z87.891 Personal history of nicotine dependence; Z79.899 Other long term (current) drug therapy
CPT/HCPCS: 36415; 36573; 73130; 73220; 80048; 80053; 83605; 85025; 87040; 87635; 99285; A9585; C1751; C1894; J0295; J0696; J1650; J2543; J3370

== ENCOUNTER 2022-10-21 16:55 | Outpatient (REF) | payer OTHER, SELFPAY ==
[2022-10-21 16:59] LABS: MANUAL DIFF FLAG NO
[2022-10-21 17:03] LABS: Basophils Absolute Auto 0.1 X10*3/uL (0.0-0.2); Basophils Percent Auto 0.6 % (0-2); Eosinophils Absolute Auto 0.3 X10*3/uL (0.0-0.4); Hematocrit 40.2 % (42.0-52.0); Hemoglobin 13.6 g/dl (14.0-18.0); Imm Gran Abs Auto 0.11 X10*3/uL (0.00-0.03); Imm Gran Pct Auto 0.9 % (0.0-0.4); Lymphocytes Absolute Auto 2.4 X10*3/uL (1.2-4.9); Lymphocytes Percent Auto 18.7 % (20-40); Mean Corpuscular HGB Conc 33.8 g/dl (31.0-36.0); Mean Corpuscular Hemoglobin 30.2 pg (27.0-33.0); Mean Corpuscular Volume 89.1 fL (80.0-98.0); Mean Platelet Volume 9.2 fL (9.4-12.4); Monocytes Percent Auto 7.9 % (2-11); Neutrophils Percent Auto 69.9 % (45-73); Platelet Count 501 X10*3/uL (160-400); Red Blood Count 4.51 X10*6/uL (4.60-5.80); Red Cell Distribution Width 13.2 % (11.0-16.0); White Blood Count 12.8 X10*3/uL (4.8-10.8)
[2022-10-21 17:27] LABS: Blood Urea Nitrogen 15 mg/dL (9-16); Estimated Glomerular Filt Rate > 60
== END 2022-10-21 16:56 | disposition home or self-care (01) ==
LOC: HO.LNP 16:55
PROVIDERS: Visit Provider Internal Medicine
DX: L03.90 Cellulitis, unspecified (principal)
CPT/HCPCS: 82565; 84520; 85025

== ENCOUNTER 2022-10-28 11:23 | Outpatient (REF) | payer OTHER, SELFPAY ==
[2022-10-28 11:27] LABS: MANUAL DIFF FLAG NO
[2022-10-28 11:33] LABS: Basophils Absolute Auto 0.1 X10*3/uL (0.0-0.2); Basophils Percent Auto 0.8 % (0-2); Eosinophils Absolute Auto 0.3 X10*3/uL (0.0-0.4); Eosinophils Percent Auto 2.8 % (0-4); Hematocrit 39.4 % (42.0-52.0); Hemoglobin 13.5 g/dl (14.0-18.0); Imm Gran Abs Auto 0.06 X10*3/uL (0.00-0.03); Imm Gran Pct Auto 0.6 % (0.0-0.4); Lymphocytes Absolute Auto 1.6 X10*3/uL (1.2-4.9); Lymphocytes Percent Auto 15.9 % (20-40); Mean Corpuscular HGB Conc 34.3 g/dl (31.0-36.0); Mean Corpuscular Hemoglobin 30.9 pg (27.0-33.0); Mean Corpuscular Volume 90.2 fL (80.0-98.0); Mean Platelet Volume 9.3 fL (9.4-12.4); Monocytes Absolute Auto 0.9 X10*3/uL (0.1-1.2); Monocytes Percent Auto 8.4 % (2-11); Neutrophils Absolute Auto 7.4 x10*3/uL (2.0-8.3); Neutrophils Percent Auto 71.5 % (45-73); Platelet Count 439 X10*3/uL (160-400); Red Blood Count 4.37 X10*6/uL (4.60-5.80); Red Cell Distribution Width 13.2 % (11.0-16.0); White Blood Count 10.3 X10*3/uL (4.8-10.8)
[2022-10-28 12:44] LABS: Blood Urea Nitrogen 13 mg/dL (9-16); Estimated Glomerular Filt Rate > 60
== END 2022-10-28 11:24 | disposition home or self-care (01) ==
LOC: HO.LNP 11:23
PROVIDERS: Visit Provider Internal Medicine
DX: L03.90 Cellulitis, unspecified (principal)
CPT/HCPCS: 82565; 84520; 85025

== ENCOUNTER → 2022-11-17 12:57 | Outpatient (BNVA) | payer OTHER, SELFPAY | PROVIDERS: PCP Internal Medicine; Visit Provider Internal Medicine | DX: M86.9 Osteomyelitis, unspecified (principal) ==

== ENCOUNTER 2022-11-21 08:59 | Outpatient (REF) | payer OTHER, SELFPAY | END 2022-11-21 09:00 | disposition home or self-care (01) | LOC: HO.RADIR 08:59 | PROVIDERS: Visit Provider Internal Medicine | DX: Z13.89 Encounter for screening for other disorder (principal) ==

== ENCOUNTER 2024-04-22 23:55 | Emergency (ER) | payer OTHER, SELFPAY ==
[2024-04-23 00:21] VITALS: BP 137/83; PULSE 79; RESP 18; TEMP 36.5; O2SAT 96; BMI 29.0
--- NOTE | 2024-04-23 00:49 | MHC.EDTECH ---
BLOOD DRAWN INCLUDING BOTH SETS OF BLOOD CULTURE DRAWN FROM DIFFERENT SITE ,AND LACTIC ACID ALL SENT TO LAB .
[2024-04-23 00:50] LABS: Basophils Absolute Auto 0.1 X10*3/uL (0.0-0.2); Basophils Percent Auto 0.7 % (0-2); Eosinophils Absolute Auto 0.2 X10*3/uL (0.0-0.4); Eosinophils Percent Auto 1.5 % (0-4); Hemoglobin 13.9 g/dl (14.0-18.0); Imm Gran Abs Auto 0.03 X10*3/uL (0.00-0.03); Imm Gran Pct Auto 0.3 % (0.0-0.4); Lymphocytes Percent Auto 19.5 % (20-40); MANUAL DIFF FLAG NO; Mean Corpuscular HGB Conc 34.8 g/dl (31.0-36.0); Mean Corpuscular Hemoglobin 32.2 pg (27.0-33.0); Mean Corpuscular Volume 92.6 fL (80.0-98.0); Mean Platelet Volume 8.8 fL (9.4-12.4); Monocytes Absolute Auto 0.8 X10*3/uL (0.1-1.2); Monocytes Percent Auto 8.1 % (2-11); Neutrophils Absolute Auto 7.2 x10*3/uL (2.0-8.3); Neutrophils Percent Auto 69.9 % (45-73); Platelet Count 341 X10*3/uL (160-400); Red Blood Count 4.32 X10*6/uL (4.60-5.80); Red Cell Distribution Width 13.2 % (11.0-16.0); White Blood Count 10.3 X10*3/uL (4.8-10.8)
[2024-04-23 01:00] LABS: Lactic Acid 1.4 mmol/L (0.5-2.0)
[2024-04-23 01:03] LABS: Anion Gap 14 (12-20); Blood Urea Nitrogen 15 mg/dL (9-16); Calcium 9.6 mg/dL (8.4-10.2); Carbon Dioxide 27 mmol/L (22-29); Chloride 105 mmol/L (96-108); Creatinine Clr Calc Pharmacy 94.4; Estimated Glomerular Filt Rate > 60; Glucose Random 103 mg/dL (60-115); Potassium 4.1 mmol/L (3.3-5.1); Sodium 142 mmol/L (135-145)
== END 2024-04-23 04:28 | disposition left against medical advice (07) ==
PROVIDERS: Emergency Provider Emergency Medicine; PCP Internal Medicine
DX: R22.32 Localized swelling, mass and lump, left upper limb (principal); E78.5 Hyperlipidemia, unspecified; I10 Essential (primary) hypertension
CPT/HCPCS: 36415; 80048; 83605; 85025; 87040; 99281; 99283